=== PATIENT | female | born 1970 | race Caucasian/White ===

== ENCOUNTER 2017-02-02 23:11 | Emergency (ER) | payer SELFPAY ==
[~2017-02-02] VITALS: Ht 160 cm; Wt 68.1 kg
[~2017-02-02 23:11] MED LIST: AMOXICILLIN/CL875 MG OR; AMOXICILLIN500 MG PO; ASPIRIN PO; BACITRACIN500 MG/GM OU; NAPROSYN500 MG OR; POLYTRIM OU; PREVACID30 M3 PO; SILVADENE1 % TOP; TESSALON200 MG PO; ZITHROMAX500 MG PO; ZOFRAN ODT4 MG PO; [UNRECOGNIZED DRUG - OTHER] OR
[2017-02-02] MEDS ORDERED: TRAZODONE50 MG PO (23:30)
[2017-02-02] MEDS ORDERED: ATIVAN1 MG PO (23:30)
[2017-02-02] MEDS ORDERED: KLONOPIN1 MG PO (23:31)
[2017-02-02] MEDS ORDERED: HYDROCO/APAP1 TA9 PO (23:33)
[2017-02-02 23:38] LABS: HEMATOCRIT 38.8 % (37.0-47.0); HEMOGLOBIN 13.6 g/dl (12.0-16.0); IMMATURE GRANULOCYTES 0.1 % (0.0-1.0); MEAN CELL VOLUME 92.6 fL CALC (80.0-100.0); MEAN CORPUSCULAR HGB 32.5 pG CALC (26.0-32.0); MEAN CORPUSCULAR HGB CONC 35.1 g/L CALC (32.0-36.0); NEUT# 2.53 thou/uL (2.00-7.15); RED BLOOD COUNT 4.19 mill/uL (4.20-5.60); RED CELL DISTRI WIDTH 12.3 % (11.5-15.5)
[2017-02-02 23:47] LABS: ALBUMIN 4.5 g/dL (3.2-5.0); ALKALINE PHOSPHATASE 52 u/l (38-126); ANION GAP 17 (6-22 (CALC)); BILIRUBIN, TOTAL 0.5 mg/dL (0.0-1.4); BUN 10 mg/dL (7-17); BUN/CREATININE RATIO 11 (12-20 (CALC)); CALCIUM 9.5 mg/dL (8.4-10.2); CARBON DIOXIDE 22 mmol/l (22-30); CHLORIDE 102 mmol/l (95-108); CREATININE 0.8 mg/dL (0.5-1.0); GFR > 60 ML/MIN (>=60 (CALC)); GFR FOR AFR.AMER. > 60 ML/MIN (>=60 (CALC)); GLUCOSE 83 mg/dL (65-105); SGOT/AST 39 u/l (14-36); SGPT/ALT 42 u/l (9-52); SODIUM 138 mmol/l (137-146); TOTAL PROTEIN 7.5 g/dL (6.3-8.2)
[2017-02-03 00:23] VITALS: BP 127/84
[2017-02-03 00:25] LABS: URINE BILIRUBIN - DIPSTICK NEGATIVE (NEGATIVE); URINE BLOOD DIPSTICK NEGATIVE (NEGATIVE); URINE CLARITY SLIGHT CLOUDY; URINE COLOR YELLOW; URINE GLUCOSE - DIPSTICK NEGATIVE (NEGATIVE); URINE KETONE NEGATIVE (NEGATIVE); URINE LEUK ESTERASE NEGATIVE (NEGATIVE); URINE NITRITE - DIPSTICK NEGATIVE (Negative); URINE PROTEIN - DIPSTICK NEGATIVE (NEG-TRACE); URINE SPECIFIC GRAVITY <=1.005; URINE UROBILINOGEN - DIPSTICK 0.2 E.U./dL (0.2)
== END 2017-02-03 00:20 | disposition short-term general hospital (02) | DRG 93 ==
LOC: ED 23:11
PROVIDERS: Emergency Medicine
DX: R20.0 Anesthesia of skin (principal); F41.9 Anxiety disorder, unspecified; M62.81 Muscle weakness (generalized); M54.9 Dorsalgia, unspecified; F17.210 Nicotine dependence, cigarettes, uncomplicated; Z87.311 Personal history of (healed) other pathological fracture; Z85.528 Personal history of other malignant neoplasm of kidney
CPT/HCPCS: J2060